=== PATIENT | female | born 1990 | race Caucasian/White ===

== ENCOUNTER 2016-07-21 08:45 | Emergency (ER) | payer OTHER ==
--- NOTE | 2016-07-21 09:29 | ED CLINICAL REPORT ---
Clinical Report - Physicians/Mid Levels [facility] [address] [place] [address] 07/21/2016 8:50 Patient: JOMAR AGUIRRE V Time Seen: 09:18 Jul 21 2016. Arrived- By private vehicle. Historian- patient. CPT: ER phys charges level 3 (#[id number]). HISTORY OF PRESENT ILLNESS Chief Complaint: Blood exposure , right hand. She touched a piece of, medical record paper, with blood on it. No known source. At its maximum, severity described as mild. When seen in the E.D., severity described as mild. Modifying factors. Not worsened by anything. Not relieved by anything. This started just prior to arrival and is still present. No current or associated symptoms. (No cuts or sores on hands.). Similar symptoms previously: None. Recent medical care: Not recently seen/assessed. REVIEW OF SYSTEMS No fever, sore throat or skin rash. All systems otherwise negative, except as recorded above. PAST HISTORY See nurses notes. Hypothyroidism. PCOS. Anxiety Reaction. SVT. - R.N. Celiac Disease. ADDITIONAL SURGERIES: Breast Reduction. EGD. Medications: Citalopram Hydrobromide Oral. Atenolol Oral. Levothyroxine Sodium Oral. MetFORMIN HCl Oral. Allergies: None. SOCIAL HISTORY Never smoker. No alcohol use or drug use. ADDITIONAL NOTES The nursing notes have been reviewed. PHYSICAL EXAM Vital Signs: 07/21/2016 09:11 BP: 131/98. HR: 87. RR: 18. O2 saturation: 100%. Temp: 98.7 F. Pain level now: 0/10. Appearance: Alert. No acute distress. Skin: Skin warm. Normal skin color. No rash. Neuro: Oriented X 3. PROGRESS AND PROCEDURES Course of Care: Discussion on low risk exposure and offered screening serology. Pt decided to defer any testing as she feels the exposure risk is slight. Patient/family counseled. Disposition: Discharged. Condition: stable. CLINICAL IMPRESSION Blood exposure , right hand. Low risk. INSTRUCTIONS Return to work today. Warnings: GENERAL WARNINGS: Return or contact your physician immediately if your condition worsens or changes unexpectedly, if not improving as expected, or if other problems arise. Your Current Medications: CONTINUE TAKING THE FOLLOWING MEDICATIONS: Atenolol Oral. Citalopram Hydrobromide Oral. Levothyroxine Sodium Oral. MetFORMIN HCl Oral. Follow-up: Follow up with your doctor as needed. Understanding of the discharge instructions verbalized by patient. (Electronically signed by Quincy Pepper MD 07/22/2016 7:40)
--- NOTE | 2016-07-21 09:29 | ED NURSING NOTES ---
Clinical Report - Nurses [facility] [address] [place] [address] 07/21/2016 8:50 Patient: JOMAR AGUIRRE V TRIAGE Triage time 09:11. Acuity: LEVEL 5. Chief Complaint: BODY FLUID EXPOSURE. 09:14 07/21/16. 09:14 07/21/16. Alert. No acute distress. ( Pt states she grabbed a piece of paper that had blood on it. This blood was wet. Pt states that she has no breakdown or cuts on her fingers. Pt washed hands right after and used hand transportation director.). SEPSIS SCREEN: Sepsis Screen. Negative (no infection suspected/documented). --09:18 Tommie Ravi R.N. 09:11 07/21/16. BP: 131/98. HR: 87. RR: 18. O2 saturation: 100%. Temp: 98.7 F (oral). Pain level now: 0/10. --09:18 Tommie Ravi R.N. Weight: 104.3 kg stated. Height/Length: 70 inches Per Patient. BMI: 33. --09:11 Tommie Ravi R.N. Medications MetFORMIN HCl Oral. --09:16 Tommie Ravi R.N. Levothyroxine Sodium Oral. --09:16 Tommie Ravi R.N. Atenolol Oral. --09:17 Tommie Ravi R.N. Citalopram Hydrobromide Oral. --09:17 Tommie Ravi R.N. Allergies None. --09:32 Tommie Ravi R.N. History Arrived by private vehicle. Historian: patient. Unaccompanied. Primary physician (LOREN ABBOTT). 09:14 07/21/16. Location of injuries: tip of right thumb and tip of right index finger. This occurred just prior to arrival (20 min ago). Incident happened at the hospital. Exposure protocol initiated. 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 Incident reports reviewed and exposure educational material provided. PAST MEDICAL HX: Immunizations: up-to-date. SOCIAL HX: Never smoker. No alcohol use or drug use. No infectious disease exposure. ABUSE ASSESSMENT: No report of abuse. FALL RISK ASSESSMENT: Fall risk assessment completed. No fall risk identified. NUTRITIONAL RISK ASSESSMENT: The nutritional risk assessment revealed no deficiencies. FUNCTIONAL ASSESSMENT: Functional assessment: no impairments noted. LEARNING NEEDS ASSESSMENT: The learning needs assessment revealed no barriers. SKIN INTEGRITY ASSESSMENT: Skin integrity risk assessment completed. No skin integrity risk identified. --09:18 Tommie Ravi R.N. PAST MEDICAL HX: Last normal menstrual period now. --09:18 Tommie Ravi R.N. PROBLEMS: Hypothyroidism. PCOS. Anxiety Reaction. SVT. --09:17 Tommie Ravi R.N. Celiac Disease. --09:18 Tommie Ravi R.N. ADDITIONAL SURGERIES: Breast Reduction. EGD. --09:18 Tommie Ravi R.N. Assessment 09:14 07/21/16. --09:18 Tommie Ravi R.N. Interventions 09:14 07/21/16. 09:14 07/21/16. ID and allergy band on patient. To treatment room. --09:18 Tommie Ravi R.N. PHYSICAL ASSESSMENT 09:15 07/21/16. Ambulatory to room. GENERAL / NEURO / PSYCH: Alert. The patient does not appear to be in acute distress. Oriented X 4. RESPIRATORY: Respirations not labored. CVS: Capillary refill less than 2 seconds. SKIN: Skin is warm and dry. --09:15 Tommie Ravi R.N. NURSING PROGRESS NOTES 09:16 07/21/16. The plan of care for this patient has been created. Head of bed elevated. Call light placed in reach. Side rails up x 2. Bed placed in lowest position. Brakes of bed on. --09:16 Tommie Ravi R.N. 09:16 07/21/16. Patient ready for evaluation- chart flagged and notification provided. --09:16 Tommie Ravi R.N. 09:32 07/21/16. ( refused blood draw and educated she can come back at any time if she elects to have blood drawn). --09:32 Tommie Ravi R.N. DISPOSITION / DISCHARGE 09:32 07/21/16. The goals identified in the patient's plan of care were met. No learning barriers present. Discharge instructions provided and reviewed with the patient. Reviewed warnings. Reviewed medication(s). Treatments reviewed. Work note given (Return to work note). Patient verbalized understanding. Written instructions provided in Italian. The patient was discharged by the physician. She was discharged home and unaccompanied at time of discharge. She left the Emergency Department ambulatory. FALL RISK ASSESSMENT: Fall risk assessment completed. No fall risk identified. --09:32 Tommie Ravi R.N. 09:11 07/21/16. BP: 131/98. HR: 87. RR: 18. O2 saturation: 100%. Temp: 98.7 F (oral). Pain level now: 0/10. --09:32 Tommie Ravi R.N. Departure time: 45. --09:39 Tommie Ravi R.N. Locked/Released at 07/21/2016 9:40 by Tommie Ravi R.N.
--- NOTE | 2016-07-21 09:29 | ED NURSING NOTES ---
Clinical Report - Nurses [facility] [address] [place] [address] 07/21/2016 8:50 Patient: JOMAR AGUIRRE V TRIAGE Triage time 09:11. Acuity: LEVEL 5. Chief Complaint: BODY FLUID EXPOSURE. 09:14 07/21/16. 09:14 07/21/16. Alert. No acute distress. ( Pt states she grabbed a piece of paper that had blood on it. This blood was wet. Pt states that she has no breakdown or cuts on her fingers. Pt washed hands right after and used hand environmental program manager.). SEPSIS SCREEN: Sepsis Screen. Negative (no infection suspected/documented). --09:18 Tommie Ravi R.N. 09:11 07/21/16. BP: 131/98. HR: 87. RR: 18. O2 saturation: 100%. Temp: 98.7 F (oral). Pain level now: 0/10. --09:18 Tommie Ravi R.N. Weight: 104.3 kg stated. Height/Length: 70 inches Per Patient. BMI: 33. --09:11 Tommie Ravi R.N. Medications MetFORMIN HCl Oral. --09:16 Tommie Ravi R.N. Levothyroxine Sodium Oral. --09:16 Tommie Ravi R.N. Atenolol Oral. --09:17 Tommie Ravi R.N. Citalopram Hydrobromide Oral. --09:17 Tommie Ravi R.N. Allergies None. --09:32 Tommie Ravi R.N. History Arrived by private vehicle. Historian: patient. Unaccompanied. Primary physician (LOREN ABBOTT). 09:14 07/21/16. Location of injuries: tip of right thumb and tip of right index finger. This occurred just prior to arrival (20 min ago). Incident happened at the hospital. Exposure protocol initiated. Notified spinning supervisor and employee health. Incident reports reviewed and exposure educational material provided. PAST MEDICAL HX: Immunizations: up-to-date. SOCIAL HX: Never smoker. No alcohol use or drug use. No infectious disease exposure. ABUSE ASSESSMENT: No report of abuse. FALL RISK ASSESSMENT: Fall risk assessment completed. No fall risk identified. NUTRITIONAL RISK ASSESSMENT: The nutritional risk assessment revealed no deficiencies. FUNCTIONAL ASSESSMENT: Functional assessment: no impairments noted. LEARNING NEEDS ASSESSMENT: The learning needs assessment revealed no barriers. SKIN INTEGRITY ASSESSMENT: Skin integrity risk assessment completed. No skin integrity risk identified. --09:18 Tommie Ravi R.N. PAST MEDICAL HX: Last normal menstrual period now. --09:18 Tommie Ravi R.N. PROBLEMS: Hypothyroidism. PCOS. Anxiety Reaction. SVT. --09:17 Tommie Ravi R.N. Celiac Disease. --09:18 Tommie Ravi R.N. ADDITIONAL SURGERIES: Breast Reduction. EGD. --09:18 Tommie Ravi R.N. Assessment 09:14 07/21/16. --09:18 Tommie Ravi R.N. Interventions 09:14 07/21/16. 09:14 07/21/16. ID and allergy band on patient. To treatment room. --09:18 Tommie Ravi R.N. PHYSICAL ASSESSMENT 09:15 07/21/16. Ambulatory to room. GENERAL / NEURO / PSYCH: Alert. The patient does not appear to be in acute distress. Oriented X 4. RESPIRATORY: Respirations not labored. CVS: Capillary refill less than 2 seconds. SKIN: Skin is warm and dry. --09:15 Tommie Ravi R.N. NURSING PROGRESS NOTES 09:16 07/21/16. The plan of care for this patient has been created. Head of bed elevated. Call light placed in reach. Side rails up x 2. Bed placed in lowest position. Brakes of bed on. --09:16 Tommie Ravi R.N. 09:16 07/21/16. Patient ready for evaluation- chart flagged and notification provided. --09:16 Tommie Ravi R.N. 09:32 07/21/16. ( refused blood draw and educated she can come back at any time if she elects to have blood drawn). --09:32 Tommie Ravi R.N. DISPOSITION / DISCHARGE 09:32 07/21/16. The goals identified in the patient's plan of care were met. No learning barriers present. Discharge instructions provided and reviewed with the patient. Reviewed warnings. Reviewed medication(s). Treatments reviewed. Work note given (Return to work note). Patient verbalized understanding. Written instructions provided in Swedish. The patient was discharged by the physician. She was discharged home and unaccompanied at time of discharge. She left the Emergency Department ambulatory. FALL RISK ASSESSMENT: Fall risk assessment completed. No fall risk identified. --09:32 Tommie Ravi R.N. 09:11 07/21/16. BP: 131/98. HR: 87. RR: 18. O2 saturation: 100%. Temp: 98.7 F (oral). Pain level now: 0/10. --09:32 Tommie Ravi R.N. Departure time: 45. --09:39 Tommie Ravi R.N. Locked/Released at 07/21/2016 9:40 by Tommie Ravi R.N.
--- NOTE | 2016-07-21 09:29 | ED CLINICAL REPORT ---
Clinical Report - Physicians/Mid Levels [facility] [address] [place] [address] 07/21/2016 8:50 Patient: JOMAR AGUIRRE V Time Seen: 09:18 Jul 21 2016. Arrived- By private vehicle. Historian- patient. CPT: ER phys charges level 3 (#939088). HISTORY OF PRESENT ILLNESS Chief Complaint: Blood exposure , right hand. She touched a piece of, medical record paper, with blood on it. No known source. At its maximum, severity described as mild. When seen in the E.D., severity described as mild. Modifying factors. Not worsened by anything. Not relieved by anything. This started just prior to arrival and is still present. No current or associated symptoms. (No cuts or sores on hands.). Similar symptoms previously: None. Recent medical care: Not recently seen/assessed. REVIEW OF SYSTEMS No fever, sore throat or skin rash. All systems otherwise negative, except as recorded above. PAST HISTORY See nurses notes. Hypothyroidism. PCOS. Anxiety Reaction. SVT. - R.N. Celiac Disease. ADDITIONAL SURGERIES: Breast Reduction. EGD. Medications: Citalopram Hydrobromide Oral. Atenolol Oral. Levothyroxine Sodium Oral. MetFORMIN HCl Oral. Allergies: None. SOCIAL HISTORY Never smoker. No alcohol use or drug use. ADDITIONAL NOTES The nursing notes have been reviewed. PHYSICAL EXAM Vital Signs: 07/21/2016 09:11 BP: 131/98. HR: 87. RR: 18. O2 saturation: 100%. Temp: 98.7 F. Pain level now: 0/10. Appearance: Alert. No acute distress. Skin: Skin warm. Normal skin color. No rash. Neuro: Oriented X 3. PROGRESS AND PROCEDURES Course of Care: Discussion on low risk exposure and offered screening serology. Pt decided to defer any testing as she feels the exposure risk is slight. Patient/family counseled. Disposition: Discharged. Condition: stable. CLINICAL IMPRESSION Blood exposure , right hand. Low risk. INSTRUCTIONS Return to work today. Warnings: GENERAL WARNINGS: Return or contact your physician immediately if your condition worsens or changes unexpectedly, if not improving as expected, or if other problems arise. Your Current Medications: CONTINUE TAKING THE FOLLOWING MEDICATIONS: Atenolol Oral. Citalopram Hydrobromide Oral. Levothyroxine Sodium Oral. MetFORMIN HCl Oral. Follow-up: Follow up with your doctor as needed. Understanding of the discharge instructions verbalized by patient. (Electronically signed by Quincy Pepper MD 07/22/2016 7:40)
--- NOTE | 2016-07-22 07:40 | ED MED RECONCILIATION SUMMARY ---
Patient: JOMAR AGUIRRE V Medication Reconciliation Report [facility] VisitID: [id number] [address] [place] [address] 26y, F Registration Date/Time: 07/21/2016 Weight: 104.3 kg Height/Length: 70 in. BMI: 33.0 ALLERGIES: None The patient's Home Medications are listed below: CONTINUE TAKING THE FOLLOWING MEDICATIONS: Atenolol Oral Citalopram Hydrobromide Oral Levothyroxine Sodium Oral MetFORMIN HCl Oral The source(s) of the original Home Medication information: Not obtained. The following Medications were given to the patient in the Emergency Department: None. The following Medications were prescribed to the patient: None.
--- NOTE | 2016-07-22 07:40 | ED DISCHARGE INSTRUCTIONS ---
Patient: JOMAR AGUIRRE V General Instructions [facility] VisitID: [id number] [address] [place] [address] 26y, F Registration Date/Time: 07/21/2016 Blood exposure , right hand. Low risk. INSTRUCTIONS Return to work today. Warnings: GENERAL WARNINGS: Return or contact your physician immediately if your condition worsens or changes unexpectedly, if not improving as expected, or if other problems arise. Your Current Medications: CONTINUE TAKING THE FOLLOWING MEDICATIONS: Atenolol Oral. Citalopram Hydrobromide Oral. Levothyroxine Sodium Oral. MetFORMIN HCl Oral. Follow-up: Follow up with your doctor as needed. Understanding of the discharge instructions verbalized by patient. Return to work today. (Electronically signed by Quincy Pepper MD 07/22/2016 7:40)
--- NOTE | 2016-07-22 07:40 | ED MAR SUMMARY ---
..... Medication Administration Record [facility] [address] [place] [id number] Patient: CARLAJOMAR V Visit ID: [id number] 26y, F Weight: 104.3 kg Height/Length: 70 in BMI: 33 ALLERGIES: None
--- NOTE | 2016-07-22 07:40 | ED DISCHARGE INSTRUCTIONS ---
Patient: JOMAR AGUIRRE V General Instructions [facility] VisitID: [id number] [address] [place] [address] 26y, F Registration Date/Time: 07/21/2016 Blood exposure , right hand. Low risk. INSTRUCTIONS Return to work today. Warnings: GENERAL WARNINGS: Return or contact your physician immediately if your condition worsens or changes unexpectedly, if not improving as expected, or if other problems arise. Your Current Medications: CONTINUE TAKING THE FOLLOWING MEDICATIONS: Atenolol Oral. Citalopram Hydrobromide Oral. Levothyroxine Sodium Oral. MetFORMIN HCl Oral. Follow-up: Follow up with your doctor as needed. Understanding of the discharge instructions verbalized by patient. Return to work today. (Electronically signed by Quincy Pepper MD 07/22/2016 7:40)
--- NOTE | 2016-07-22 07:40 | ED MED RECONCILIATION SUMMARY ---
Patient: JOMAR AGUIRRE V Medication Reconciliation Report [facility] VisitID: [id number] [address] [place] [place] [address] 26y, F Registration Date/Time: 07/21/2016 Weight: 104.3 kg Height/Length: 70 in. BMI: 33.0 ALLERGIES: None The patient's Home Medications are listed below: CONTINUE TAKING THE FOLLOWING MEDICATIONS: Atenolol Oral Citalopram Hydrobromide Oral Levothyroxine Sodium Oral MetFORMIN HCl Oral The source(s) of the original Home Medication information: Not obtained. The following Medications were given to the patient in the Emergency Department: None. The following Medications were prescribed to the patient: None.
--- NOTE | 2016-07-22 07:40 | ED MAR SUMMARY ---
..... Medication Administration Record [facility] [address], [place] [id number] Patient: CARLAJOMAR V Visit ID: [id number] 26y, F Weight: 104.3 kg Height/Length: 70 in BMI: 33 ALLERGIES: None
== END 2016-07-21 09:45 | disposition home or self-care (01) ==
LOC: ED SRH 08:45
DX: Z77.21 Contact with and (suspected) exposure to potentially hazardous body fluids (principal); Z79.899 Other long term (current) drug therapy